=== PATIENT | male | born 1960 | race Caucasian/White ===

== ENCOUNTER 2023-01-07 13:49 | Inpatient (IN) | payer OTHER ==
[2023-01-07 14:46] VITALS: BMI 22.6
[2023-01-07] MEDS ORDERED: POLYETHYLENE GLYCOL (HEALTHYLAX) 3350 17 GM PACKET PO PRN (16:42)
[2023-01-07] MEDS ORDERED: P-EPHED 60MG/TRIPROLIDI 2.5MG TABLET PO PRN (16:42)
[2023-01-07] MEDS ORDERED: NICOTINE POLACRILEX 2 MG GUM BUC PRN (16:42)
[2023-01-07] MEDS ORDERED: guaiFENesin 200 MG/10 ML 10 ML UNIT-DOSE CUPS PO PRN (16:42)
[2023-01-07] MEDS ORDERED: BISMUTH SUBSALICYLATE 524 MG/30 ML PO PRN (16:42)
[2023-01-07] MEDS ORDERED: ACETAMINOPHEN 325 MG TABLET (FP) PO PRN (16:42)
[2023-01-07] MEDS ORDERED: LOPERAMIDE HCL 2 MG CAPSULE PO PRN (16:42)
[2023-01-07] MEDS ORDERED: ONDANSETRON *ODT* 4 MG TABLET SL PRN (16:42)
[2023-01-07] MEDS ORDERED: DICYCLOMINE HCL 10 MG CAPSULE PO PRN (16:42)
[2023-01-07] MEDS ORDERED: MAG HYDROX/AL HYDROX/SIMETH 30 ML UNIT-DOSE CUP PO PRN (16:42)
[2023-01-07] MEDS ORDERED: MAGNESIUM HYDROX 2400MG/30ML ORAL SUSPENSION 30 ML CUP PO PRN (16:42)
[2023-01-07] MEDS ORDERED: BENZOCAINE/MENTHOL (CHLORASEPTIC ) LOZENGE MM PRN (16:42)
[2023-01-07] MEDS ORDERED: METOPROLOL TARTRATE 25 MG TABLET (FP) PO ONE (16:45)
[2023-01-07] MEDS ORDERED: chlordiazePOXIDE HCL 25 MG CAPSULE ONE (16:51)
[2023-01-07] MEDS: chlordiazePOXIDE HCL 25 MG CAPSULE PO SCH ×2 (17:06→22:28)
[2023-01-07] MEDS: hydrOXYzine PAMOATE 25 MG CAPSULE (FP) PO PRN (18:46)
[2023-01-07] MEDS: IBUPROFEN 600 MG TABLET (FP) PO PRN (18:46)
[2023-01-07] MEDS: MELATONIN 5 MG TABLETS PO PRN (22:28)
[2023-01-07] MEDS: THIAMINE HCL 100 MG TABLET (FP) PO SCH (22:28)
[2023-01-07] MEDS: METHOCARBAMOL 500 MG TABLET PO PRN (22:30)
[2023-01-08] MEDS: chlordiazePOXIDE HCL 25 MG CAPSULE PO SCH ×4 (05:52→22:02)
[2023-01-08] MEDS: METHOCARBAMOL 500 MG TABLET PO PRN (10:37)
[2023-01-08] MEDS: PRENATAL VITAMINS W/ FOLIC ACID TABLET (FP) PO SCH (10:37)
[2023-01-08] MEDS: NICOTINE 14 MG/24 HOURS TOPICAL PATCH TD SCH (10:37)
[2023-01-08] MEDS: IBUPROFEN 600 MG TABLET (FP) PO PRN ×2 (10:38→17:25)
[2023-01-08 10:44] LABS: HEMOGLOBIN 13.6 GM/dL (11.7-16.9); MCH 34.7 pg (25.7-33.7); MEAN CELL VOLUME 102.1 fl (80-96); MEAN PLT VOLUME 9.2 fl (7.5-11.1); PLATELET COUNT 91 10^3/uL (134-434); RBC 3.92 M/mm3 (4.00-5.60); RDW 13.9 % (11.9-15.9); WHITE BLOOD COUNT 4.2 K/mm3 (4.0-10.0)
[2023-01-08 11:26] LABS: ALBUMIN 3.4 g/dl (3.4-5.0)
[2023-01-08 11:27] LABS: CALCIUM 8.6 mg/dL (8.5-10.1)
[2023-01-08 11:31] LABS: CREATININE 0.7 mg/dL (0.55-1.3); TOT PROT 6.4 g/dl (6.4-8.2)
[2023-01-08 11:36] LABS: BILIRUBIN,TOTAL 1.2 mg/dL (0.2-1)
[2023-01-08] MEDS ORDERED: POTASSIUM CHLORIDE ORAL LIQUID 20 MEQ/15 ML PO ONE (13:02)
[2023-01-08] MEDS: chlordiazePOXIDE HCL 25 MG CAPSULE PO PRN (15:21)
[2023-01-08] MEDS: ACETAMINOPHEN 325 MG TABLET (FP) PO PRN (15:21)
[2023-01-08] MEDS: MELATONIN 5 MG TABLETS PO PRN (22:02)
[2023-01-08] MEDS: THIAMINE HCL 100 MG TABLET (FP) PO SCH (22:02)
[2023-01-08] MEDS: POTASSIUM CHLORIDE ORAL LIQUID 20 MEQ/15 ML PO SCH (22:02)
[2023-01-08] MEDS: hydrOXYzine PAMOATE 25 MG CAPSULE (FP) PO PRN (22:03)
[2023-01-09] MEDS: chlordiazePOXIDE HCL 25 MG CAPSULE PO SCH ×4 (05:30→22:11)
[2023-01-09] MEDS: IBUPROFEN 600 MG TABLET (FP) PO PRN ×2 (05:33→17:22)
[2023-01-09] MEDS: PRENATAL VITAMINS W/ FOLIC ACID TABLET (FP) PO SCH (10:14)
[2023-01-09] MEDS: POTASSIUM CHLORIDE ORAL LIQUID 20 MEQ/15 ML PO SCH ×2 (10:14→22:12)
[2023-01-09] MEDS: NICOTINE 14 MG/24 HOURS TOPICAL PATCH TD SCH (10:16)
[2023-01-09] MEDS: chlordiazePOXIDE HCL 25 MG CAPSULE PO PRN (14:31)
[2023-01-09] MEDS: MELATONIN 5 MG TABLETS PO PRN (22:11)
[2023-01-09] MEDS: GABAPENTIN 400 MG CAPSULE PO SCH (22:11)
[2023-01-09] MEDS: THIAMINE HCL 100 MG TABLET (FP) PO SCH (22:11)
[2023-01-09] MEDS: METHOCARBAMOL 500 MG TABLET PO PRN (22:13)
[2023-01-10] MEDS ORDERED: chlordiazePOXIDE HCL 10 MG CAPSULE PO PRN
[2023-01-10] MEDS: GABAPENTIN 400 MG CAPSULE PO SCH ×3 (05:48→22:21)
[2023-01-10] MEDS: chlordiazePOXIDE HCL 10 MG CAPSULE PO SCH ×4 (05:48→22:21)
[2023-01-10] MEDS: PRENATAL VITAMINS W/ FOLIC ACID TABLET (FP) PO SCH (10:43)
[2023-01-10] MEDS: NICOTINE 14 MG/24 HOURS TOPICAL PATCH TD SCH (10:44)
[2023-01-10] MEDS: IBUPROFEN 600 MG TABLET (FP) PO PRN ×2 (10:46→17:06)
[2023-01-10] MEDS: hydrOXYzine PAMOATE 25 MG CAPSULE (FP) PO PRN (22:03)
[2023-01-10] MEDS: METHOCARBAMOL 500 MG TABLET PO PRN (22:04)
[2023-01-10] MEDS: THIAMINE HCL 100 MG TABLET (FP) PO SCH (22:21)
[2023-01-11] MEDS: GABAPENTIN 400 MG CAPSULE PO SCH ×3 (05:29→22:06)
[2023-01-11] MEDS: chlordiazePOXIDE HCL 10 MG CAPSULE PO SCH ×2 (05:29→17:24)
[2023-01-11] MEDS: IBUPROFEN 400 MG TABLET (FP) PO PRN ×2 (05:30→10:33)
[2023-01-11] MEDS: PRENATAL VITAMINS W/ FOLIC ACID TABLET (FP) PO SCH (10:31)
[2023-01-11] MEDS: NICOTINE 14 MG/24 HOURS TOPICAL PATCH TD SCH (10:31)
[2023-01-11] MEDS: METHOCARBAMOL 500 MG TABLET PO PRN ×2 (10:33→22:07)
[2023-01-11] MEDS: hydrOXYzine PAMOATE 25 MG CAPSULE (FP) PO PRN (14:18)
[2023-01-11] MEDS: IBUPROFEN 600 MG TABLET (FP) PO PRN (17:24)
[2023-01-11] MEDS: MELATONIN 5 MG TABLETS PO PRN (22:06)
[2023-01-11] MEDS: THIAMINE HCL 100 MG TABLET (FP) PO SCH (22:06)
[2023-01-12] MEDS ORDERED: chlordiazePOXIDE HCL 10 MG CAPSULE PO ONE (05:00)
[2023-01-12] MEDS: GABAPENTIN 400 MG CAPSULE PO SCH ×2 (05:16→14:09)
[2023-01-12 10:06] VITALS: RESP 17
[2023-01-12] MEDS: PRENATAL VITAMINS W/ FOLIC ACID TABLET (FP) PO SCH (10:06)
[2023-01-12] MEDS: hydrOXYzine PAMOATE 25 MG CAPSULE (FP) PO PRN (10:06)
[2023-01-12] MEDS: NICOTINE 14 MG/24 HOURS TOPICAL PATCH TD SCH (10:07)
[2023-01-12] MEDS: IBUPROFEN 600 MG TABLET (FP) PO PRN (10:07)
[2023-01-12 12:55] VITALS: BP 135/84; PULSE 80; TEMP 97.5
[2023-01-12] MEDS: ACETAMINOPHEN 325 MG TABLET (FP) PO PRN (14:08)
== END 2023-01-12 03:47 | disposition other institution (70) | DRG 775 ==
LOC: YASAS 13:49 → Y3N 18:13
PROVIDERS: ADMIT Allergy & Immunology; ATTEND Surgery
PROC: HZ2ZZZZ Detoxification Services for Substance Abuse Treatment (ICD-10-PCS; principal; 2023-01-07)
DX: F10.230 Alcohol dependence with withdrawal, uncomplicated (principal); F13.20 Sedative, hypnotic or anxiolytic dependence, uncomplicated; F17.210 Nicotine dependence, cigarettes, uncomplicated; F41.9 Anxiety disorder, unspecified; F32.A Depression, unspecified; F43.10 Post-traumatic stress disorder, unspecified; M54.50 Low back pain, unspecified; G89.29 Other chronic pain; Z86.19 Personal history of other infectious and parasitic diseases; Z98.1 Arthrodesis status; Z88.8 Allergy status to other drugs, medicaments and biological substances
CPT/HCPCS: 36415; 80053; 82247; 83036; 84132; 84450; 85027; 86780; C9803-CS; U0003; U0005

== ENCOUNTER 2023-01-12 15:52 | Inpatient (IN) | payer OTHER ==
[2023-01-12] MEDS ORDERED: LOPERAMIDE HCL 2 MG CAPSULE PO PRN (17:53)
[2023-01-12] MEDS ORDERED: ACETAMINOPHEN 325 MG TABLET (FP) PO PRN (17:53)
[2023-01-12] MEDS ORDERED: POLYETHYLENE GLYCOL (HEALTHYLAX) 3350 17 GM PACKET PO PRN (17:53)
[2023-01-12] MEDS ORDERED: guaiFENesin 200 MG/10 ML 10 ML UNIT-DOSE CUPS PO PRN (17:53)
[2023-01-12] MEDS ORDERED: P-EPHED 60MG/TRIPROLIDI 2.5MG TABLET PO PRN (17:53)
[2023-01-12] MEDS ORDERED: hydrOXYzine PAMOATE 25 MG CAPSULE (FP) PO PRN (17:53)
[2023-01-12] MEDS ORDERED: MAGNESIUM HYDROX 2400MG/30ML ORAL SUSPENSION 30 ML CUP PO PRN (17:53)
[2023-01-12] MEDS ORDERED: BENZOCAINE/MENTHOL (CHLORASEPTIC ) LOZENGE MM PRN (17:53)
[2023-01-12] MEDS ORDERED: MAG HYDROX/AL HYDROX/SIMETH 30 ML UNIT-DOSE CUP PO PRN (17:53)
[2023-01-12] MEDS: GABAPENTIN 400 MG CAPSULE PO SCH (21:39)
[2023-01-12] MEDS: THIAMINE HCL 100 MG TABLET (FP) PO SCH (21:39)
[2023-01-12] MEDS: MELATONIN 5 MG TABLETS PO SCH (21:39)
[2023-01-13] MEDS: GABAPENTIN 400 MG CAPSULE PO SCH ×3 (05:58→21:30)
[2023-01-13] MEDS: IBUPROFEN 400 MG TABLET (FP) PO PRN ×2 (05:59→16:23)
[2023-01-13] MEDS: NICOTINE 7 MG/24 HOURS TOPICAL PATCH TD SCH (09:31)
[2023-01-13] MEDS: METOPROLOL TARTRATE 25 MG TABLET (FP) PO SCH (09:31)
[2023-01-13] MEDS: PRENATAL VITAMINS W/ FOLIC ACID TABLET (FP) PO SCH (09:31)
[2023-01-13] MEDS: NICOTINE 10 MG CARTRIDGE (INHALER) IH PRN ×2 (09:32→15:59)
[2023-01-13] MEDS: hydrOXYzine PAMOATE 25 MG CAPSULE (FP) PO PRN (16:23)
[2023-01-13] MEDS: MELATONIN 5 MG TABLETS PO SCH (21:30)
[2023-01-13] MEDS: THIAMINE HCL 100 MG TABLET (FP) PO SCH (21:30)
[2023-01-14] MEDS: GABAPENTIN 400 MG CAPSULE PO SCH ×3 (05:42→21:05)
[2023-01-14] MEDS: hydrOXYzine PAMOATE 25 MG CAPSULE (FP) PO PRN ×3 (05:43→21:06)
[2023-01-14] MEDS: NICOTINE 7 MG/24 HOURS TOPICAL PATCH TD SCH (10:59)
[2023-01-14] MEDS: METOPROLOL TARTRATE 25 MG TABLET (FP) PO SCH (10:59)
[2023-01-14] MEDS: PRENATAL VITAMINS W/ FOLIC ACID TABLET (FP) PO SCH (11:00)
[2023-01-14] MEDS: IBUPROFEN 400 MG TABLET (FP) PO PRN ×2 (11:02→21:05)
[2023-01-14] MEDS: NICOTINE 10 MG CARTRIDGE (INHALER) IH PRN ×2 (11:03→17:40)
[2023-01-14] MEDS: THIAMINE HCL 100 MG TABLET (FP) PO SCH (21:05)
[2023-01-14] MEDS: MELATONIN 5 MG TABLETS PO SCH (21:05)
[2023-01-15] MEDS: GABAPENTIN 400 MG CAPSULE PO SCH ×3 (06:02→21:15)
[2023-01-15] MEDS: hydrOXYzine PAMOATE 25 MG CAPSULE (FP) PO PRN ×2 (06:03→14:16)
[2023-01-15] MEDS: IBUPROFEN 400 MG TABLET (FP) PO PRN ×2 (06:04→14:12)
[2023-01-15] MEDS: METOPROLOL TARTRATE 25 MG TABLET (FP) PO SCH (09:37)
[2023-01-15] MEDS: PRENATAL VITAMINS W/ FOLIC ACID TABLET (FP) PO SCH (09:37)
[2023-01-15] MEDS: NICOTINE 7 MG/24 HOURS TOPICAL PATCH TD SCH (09:38)
[2023-01-15] MEDS: NICOTINE 10 MG CARTRIDGE (INHALER) IH PRN (14:14)
[2023-01-15] MEDS: MELATONIN 5 MG TABLETS PO SCH (21:15)
[2023-01-15] MEDS: THIAMINE HCL 100 MG TABLET (FP) PO SCH (21:15)
[2023-01-16] MEDS: GABAPENTIN 400 MG CAPSULE PO SCH ×3 (05:49→21:35)
[2023-01-16] MEDS: IBUPROFEN 400 MG TABLET (FP) PO PRN (05:49)
[2023-01-16] MEDS: hydrOXYzine PAMOATE 25 MG CAPSULE (FP) PO PRN ×3 (05:50→21:36)
[2023-01-16] MEDS: NICOTINE 7 MG/24 HOURS TOPICAL PATCH TD SCH (10:36)
[2023-01-16] MEDS: NICOTINE 10 MG CARTRIDGE (INHALER) IH PRN ×2 (10:36→22:03)
[2023-01-16] MEDS: PRENATAL VITAMINS W/ FOLIC ACID TABLET (FP) PO SCH (10:36)
[2023-01-16] MEDS: METOPROLOL TARTRATE 25 MG TABLET (FP) PO SCH (10:36)
[2023-01-16] MEDS: MELATONIN 5 MG TABLETS PO SCH (21:35)
[2023-01-16] MEDS: THIAMINE HCL 100 MG TABLET (FP) PO SCH (21:36)
[2023-01-17] MEDS: hydrOXYzine PAMOATE 25 MG CAPSULE (FP) PO PRN ×2 (05:53→14:42)
[2023-01-17] MEDS: IBUPROFEN 400 MG TABLET (FP) PO PRN ×2 (05:53→14:42)
[2023-01-17] MEDS: GABAPENTIN 400 MG CAPSULE PO SCH ×3 (05:53→21:07)
[2023-01-17] MEDS: PRENATAL VITAMINS W/ FOLIC ACID TABLET (FP) PO SCH (09:44)
[2023-01-17] MEDS: METOPROLOL TARTRATE 25 MG TABLET (FP) PO SCH (09:44)
[2023-01-17] MEDS: NICOTINE 7 MG/24 HOURS TOPICAL PATCH TD SCH (09:44)
[2023-01-17] MEDS: NICOTINE 10 MG CARTRIDGE (INHALER) IH PRN (21:07)
[2023-01-17] MEDS: THIAMINE HCL 100 MG TABLET (FP) PO SCH (21:07)
[2023-01-17] MEDS: MELATONIN 5 MG TABLETS PO SCH (21:07)
[2023-01-18] MEDS: GABAPENTIN 400 MG CAPSULE PO SCH ×3 (06:38→21:34)
[2023-01-18] MEDS: hydrOXYzine PAMOATE 25 MG CAPSULE (FP) PO PRN ×3 (06:39→21:35)
[2023-01-18] MEDS: IBUPROFEN 400 MG TABLET (FP) PO PRN ×2 (06:40→21:35)
[2023-01-18] MEDS: METOPROLOL TARTRATE 25 MG TABLET (FP) PO SCH (10:20)
[2023-01-18] MEDS: NICOTINE 7 MG/24 HOURS TOPICAL PATCH TD SCH (10:20)
[2023-01-18] MEDS: PRENATAL VITAMINS W/ FOLIC ACID TABLET (FP) PO SCH (10:20)
[2023-01-18] MEDS: NICOTINE 10 MG CARTRIDGE (INHALER) IH PRN (17:37)
[2023-01-18] MEDS: THIAMINE HCL 100 MG TABLET (FP) PO SCH (21:34)
[2023-01-18] MEDS: MELATONIN 5 MG TABLETS PO SCH (21:34)
[2023-01-19] MEDS: IBUPROFEN 400 MG TABLET (FP) PO PRN (05:53)
[2023-01-19] MEDS: GABAPENTIN 400 MG CAPSULE PO SCH ×3 (05:53→21:47)
[2023-01-19] MEDS: hydrOXYzine PAMOATE 25 MG CAPSULE (FP) PO PRN ×3 (05:53→21:48)
[2023-01-19] MEDS: NICOTINE 10 MG CARTRIDGE (INHALER) IH PRN ×2 (05:54→13:16)
[2023-01-19] MEDS: PRENATAL VITAMINS W/ FOLIC ACID TABLET (FP) PO SCH (09:44)
[2023-01-19] MEDS: METOPROLOL TARTRATE 25 MG TABLET (FP) PO SCH (09:44)
[2023-01-19] MEDS: NICOTINE 7 MG/24 HOURS TOPICAL PATCH TD SCH (09:44)
[2023-01-19] MEDS ORDERED: CYANOCOBALAMIN (VITAMIN B-12) 1000 MCG/1 ML VIAL IM ONE (11:35)
[2023-01-19] MEDS: THIAMINE HCL 100 MG TABLET (FP) PO SCH (21:47)
[2023-01-19] MEDS: MELATONIN 5 MG TABLETS PO SCH (21:47)
[2023-01-20] MEDS: GABAPENTIN 400 MG CAPSULE PO SCH ×3 (06:24→21:39)
[2023-01-20] MEDS: hydrOXYzine PAMOATE 25 MG CAPSULE (FP) PO PRN (06:25)
[2023-01-20] MEDS: IBUPROFEN 400 MG TABLET (FP) PO PRN (06:25)
[2023-01-20] MEDS: METOPROLOL TARTRATE 25 MG TABLET (FP) PO SCH (10:46)
[2023-01-20] MEDS: PRENATAL VITAMINS W/ FOLIC ACID TABLET (FP) PO SCH (10:46)
[2023-01-20] MEDS: NICOTINE 7 MG/24 HOURS TOPICAL PATCH TD SCH (10:46)
[2023-01-20] MEDS: MELATONIN 5 MG TABLETS PO SCH (21:39)
[2023-01-20] MEDS: THIAMINE HCL 100 MG TABLET (FP) PO SCH (21:39)
[2023-01-21] MEDS: NICOTINE 10 MG CARTRIDGE (INHALER) IH PRN (05:51)
[2023-01-21] MEDS: hydrOXYzine PAMOATE 25 MG CAPSULE (FP) PO PRN ×2 (05:51→13:40)
[2023-01-21] MEDS: GABAPENTIN 400 MG CAPSULE PO SCH ×3 (05:51→21:17)
[2023-01-21] MEDS: IBUPROFEN 400 MG TABLET (FP) PO PRN ×2 (05:52→13:40)
[2023-01-21 08:49] VITALS: RESP 18
[2023-01-21] MEDS: PRENATAL VITAMINS W/ FOLIC ACID TABLET (FP) PO SCH (09:34)
[2023-01-21] MEDS: METOPROLOL TARTRATE 25 MG TABLET (FP) PO SCH (09:34)
[2023-01-21] MEDS: NICOTINE 7 MG/24 HOURS TOPICAL PATCH TD SCH (09:34)
[2023-01-21] MEDS: MELATONIN 5 MG TABLETS PO SCH (21:17)
[2023-01-21] MEDS: THIAMINE HCL 100 MG TABLET (FP) PO SCH (21:17)
[2023-01-22] MEDS: hydrOXYzine PAMOATE 25 MG CAPSULE (FP) PO PRN ×2 (05:52→21:09)
[2023-01-22] MEDS: GABAPENTIN 400 MG CAPSULE PO SCH ×3 (05:52→21:09)
[2023-01-22] MEDS: IBUPROFEN 400 MG TABLET (FP) PO PRN ×2 (05:52→16:42)
[2023-01-22] MEDS: NICOTINE 10 MG CARTRIDGE (INHALER) IH PRN ×2 (05:53→14:06)
[2023-01-22] MEDS: METOPROLOL TARTRATE 25 MG TABLET (FP) PO SCH (10:40)
[2023-01-22] MEDS: NICOTINE 7 MG/24 HOURS TOPICAL PATCH TD SCH (10:40)
[2023-01-22] MEDS: PRENATAL VITAMINS W/ FOLIC ACID TABLET (FP) PO SCH (10:40)
[2023-01-22] MEDS: MELATONIN 5 MG TABLETS PO SCH (21:09)
[2023-01-22] MEDS: THIAMINE HCL 100 MG TABLET (FP) PO SCH (21:09)
[2023-01-23] MEDS: GABAPENTIN 400 MG CAPSULE PO SCH ×3 (06:13→21:42)
[2023-01-23] MEDS: IBUPROFEN 400 MG TABLET (FP) PO PRN ×2 (06:13→21:43)
[2023-01-23] MEDS: hydrOXYzine PAMOATE 25 MG CAPSULE (FP) PO PRN ×2 (06:13→13:09)
[2023-01-23] MEDS: NICOTINE 10 MG CARTRIDGE (INHALER) IH PRN ×2 (06:14→13:09)
[2023-01-23] MEDS: PRENATAL VITAMINS W/ FOLIC ACID TABLET (FP) PO SCH (09:40)
[2023-01-23] MEDS: METOPROLOL TARTRATE 25 MG TABLET (FP) PO SCH (09:40)
[2023-01-23] MEDS: NICOTINE 7 MG/24 HOURS TOPICAL PATCH TD SCH (09:40)
[2023-01-23] MEDS: THIAMINE HCL 100 MG TABLET (FP) PO SCH (21:42)
[2023-01-23] MEDS: MELATONIN 5 MG TABLETS PO SCH (21:42)
[2023-01-24] MEDS: NICOTINE 10 MG CARTRIDGE (INHALER) IH PRN ×2 (06:14→14:29)
[2023-01-24] MEDS: GABAPENTIN 400 MG CAPSULE PO SCH ×3 (06:15→21:05)
[2023-01-24] MEDS: IBUPROFEN 400 MG TABLET (FP) PO PRN (06:15)
[2023-01-24] MEDS: hydrOXYzine PAMOATE 25 MG CAPSULE (FP) PO PRN (06:15)
[2023-01-24] MEDS: PRENATAL VITAMINS W/ FOLIC ACID TABLET (FP) PO SCH (10:13)
[2023-01-24] MEDS: METOPROLOL TARTRATE 25 MG TABLET (FP) PO SCH (10:14)
[2023-01-24] MEDS: NICOTINE 7 MG/24 HOURS TOPICAL PATCH TD SCH (10:14)
[2023-01-24] MEDS: THIAMINE HCL 100 MG TABLET (FP) PO SCH (21:05)
[2023-01-24] MEDS: MELATONIN 5 MG TABLETS PO SCH (21:05)
[2023-01-25] MEDS: hydrOXYzine PAMOATE 25 MG CAPSULE (FP) PO PRN (06:05)
[2023-01-25] MEDS: GABAPENTIN 400 MG CAPSULE PO SCH ×3 (06:05→21:40)
[2023-01-25] MEDS: NICOTINE 10 MG CARTRIDGE (INHALER) IH PRN ×3 (06:05→21:40)
[2023-01-25] MEDS: IBUPROFEN 400 MG TABLET (FP) PO PRN ×3 (06:06→21:40)
[2023-01-25] MEDS: METOPROLOL TARTRATE 25 MG TABLET (FP) PO SCH (09:44)
[2023-01-25] MEDS: PRENATAL VITAMINS W/ FOLIC ACID TABLET (FP) PO SCH (09:44)
[2023-01-25] MEDS: NICOTINE 7 MG/24 HOURS TOPICAL PATCH TD SCH (09:45)
[2023-01-25] MEDS: THIAMINE HCL 100 MG TABLET (FP) PO SCH (21:40)
[2023-01-25] MEDS: MELATONIN 5 MG TABLETS PO SCH (21:40)
[2023-01-26] MEDS: IBUPROFEN 400 MG TABLET (FP) PO PRN (06:24)
[2023-01-26] MEDS: NICOTINE 10 MG CARTRIDGE (INHALER) IH PRN ×2 (06:24→09:41)
[2023-01-26] MEDS: GABAPENTIN 400 MG CAPSULE PO SCH (06:24)
[2023-01-26] MEDS: hydrOXYzine PAMOATE 25 MG CAPSULE (FP) PO PRN (06:25)
[2023-01-26 06:33] VITALS: TEMP 97.8
[2023-01-26 09:03] VITALS: BP 125/72; PULSE 94
[2023-01-26] MEDS: PRENATAL VITAMINS W/ FOLIC ACID TABLET (FP) PO SCH (09:41)
[2023-01-26] MEDS: NICOTINE 7 MG/24 HOURS TOPICAL PATCH TD SCH (09:42)
[2023-01-26] MEDS: METOPROLOL TARTRATE 25 MG TABLET (FP) PO SCH (09:42)
== END 2023-01-26 09:43 | disposition home or self-care (01) | DRG 772 ==
LOC: YASAS 15:52 → Y3W 15:53
PROVIDERS: ADMIT Allergy & Immunology; ATTEND Psychiatry & Neurology Pain Medicine
PROC: HZ42ZZZ Group Counseling for Substance Abuse Treatment, Cognitive-Behavioral (ICD-10-PCS; principal; 2023-01-12)
DX: F10.20 Alcohol dependence, uncomplicated (principal); F11.10 Opioid abuse, uncomplicated; F12.20 Cannabis dependence, uncomplicated; F17.210 Nicotine dependence, cigarettes, uncomplicated; F32.9 Major depressive disorder, single episode, unspecified; F43.10 Post-traumatic stress disorder, unspecified; D53.9 Nutritional anemia, unspecified; I10 Essential (primary) hypertension; M54.50 Low back pain, unspecified; G89.29 Other chronic pain; Z88.8 Allergy status to other drugs, medicaments and biological substances